=== PATIENT | male | born 1935 | race Caucasian/White ===

== ENCOUNTER → 2019-03-04 | Outpatient (CLI) | payer MEDICARE, OTHER ==
[~2019-03-04] MED LIST: ADVIL200 MG PO; ASPIRIN 81M81 MG/TA2 PO; BLOOD PRESSURE MED PO; BYSTOLIC5 MG PO; CHLORTHALIDONE25 MG PO; CLARITIN 1010 MG/TAB PO; KLOR-CON 1010 MEQ PO; NORCO 325 MG-51 TAB PO; PREVACID 30MG30 M1 PO; SYNTHROID0.112 MG/T PO; TYLENOL W/COD1 UDTAB PO; [UNRECOGNIZED DRUG - OTHER] PO
== END ==
LOC: COL.VAS 09:08
DX: H34.11 Central retinal artery occlusion, right eye (principal); I35.2 Nonrheumatic aortic (valve) stenosis with insufficiency

== ENCOUNTER 2019-05-19 12:05 | Emergency (ER) | payer MEDICARE, OTHER ==
[~2019-05-19] VITALS: Ht 177.8 cm; Wt 95.5 kg
[2019-05-19 12:06] VITALS: TEMP 99.9
[2019-05-19 12:54] LABS: COLLECTION METHOD CLEAN CATCH
[2019-05-19 12:57] LABS: GRAN # 1.4 (1.4-6.5); GRAN % 64.3 % (42.2-75.2); HEMATOCRIT 44.6 % (42.0-52.0); LYMPH # 0.6 (1.2-3.4); LYMPH % 26.2 % (20.0-51.0); MEAN CELL VOLUME 80 fl (80.0-100.0); MEAN CORPUSCULAR HEMOGLOBIN 25 pg (27.0-31.0); MEAN CORPUSCULAR HGB CONC 31 g/dl (33.0-37.0); MONO # 0.2 (0.1-0.6); PLATELET COUNT 118 K/mm3 (130-400); RED BLOOD COUNT 5.57 M/mm3 (4.20-5.60); REDCELL DISTRIBUTION WIDTH-CV 15.8 % (11.5-14.5)
[2019-05-19 13:02] LABS: MUCOUS Present /lpf; PH 6 (5-8); SQUAMOUS EPITHELIAL None Seen /hpf; URINE APPEARANCE Clear; URINE BACTERIA None Seen /hpf; URINE BILIRUBIN Negative (NEGATIVE); URINE BLOOD Negative (NEGATIVE); URINE COLOR Yellow; URINE GLUCOSE Negative (NEGATIVE); URINE KETONE Trace (NEGATIVE); URINE LEUKOCYTE ESTERASE Negative (NEGATIVE); URINE NITRATE Negative (NEGATIVE); URINE PROTEIN(semi-quant) 1+ (NEGATIVE); URINE RBC 0-2 /hpf; URINE UROBILINOGEN Negative (NEGATIVE)
[2019-05-19 13:11] LABS: ALBUMIN 4.5 gm/dL (3.5-5.0); BILIRUBIN,TOTAL 0.5 mg/dL (0.0-1.0); CREATININE, serum 0.76 (0.66-1.25); POTASSIUM 3.3 mmol/L (3.4-5.0); TOTAL PROTEIN 7.8 gm/dL (6.4-8.2)
[2019-05-19] MEDS ORDERED: PRILOSEC 20MG20 MG PO (13:27)
[2019-05-19] MEDS ORDERED: SYNTHROID0.1 MG/TAB PO (13:28)
[2019-05-19] MEDS ORDERED: HYZAAR 50-12.1 UDTAB PO (13:28)
[2019-05-19] MEDS ORDERED: ADVIL200 MG PO (13:29)
[2019-05-19] MEDS ORDERED: ASPIRIN 81M81 MG/TA2 PO (13:30)
[2019-05-19] MEDS ORDERED: K-TAB20 PO (13:30)
[2019-05-19] MEDS ORDERED: PLAVIX 75MG TAB75 MG PO (13:30)
[2019-05-19] MEDS ORDERED: TOPROL XL 25MG25 MG PO (13:32)
[2019-05-19] MEDS ORDERED: LIPITOR 40MG TA40 MG PO (13:32)
[2019-05-19 15:11] VITALS: BP 149/69; PULSE 70
== END 2019-05-19 15:11 | disposition home or self-care (01) ==
LOC: COL.ER 12:05
PROVIDERS: Family Medicine
DX: B34.9 Viral infection, unspecified (principal); Z79.82 Long term (current) use of aspirin
CPT/HCPCS: J2405; J7030; J7040

== ENCOUNTER 2024-01-28 11:12 | Emergency (ER) | payer MEDICARE, OTHER ==
[~2024-01-28] VITALS: Ht 177.8 cm; Wt 88.6 kg
[~2024-01-28 11:12] MED LIST changes: +HYZAAR 50-12.1 UDTAB PO; +K-TAB20 PO; +LIPITOR 40MG TA40 MG PO; +PLAVIX 75MG TAB75 MG PO; +PRILOSEC 20MG20 MG PO; +SYNTHROID0.1 MG/TAB PO; +TOPROL XL 25MG25 MG PO
[2024-01-28 11:16] VITALS: TEMP 97.6
[2024-01-28 11:41] LABS: EOS # 0.2 K/mm3 (0.0-0.7); EOS % 3.7 % (0.0-4.0); GRAN # 2.3 K/mm3 (1.4-6.5); GRAN % 51.7 % (42.2-75.2); HEMATOCRIT 40.4 % (42.0-52.0); HEMOGLOBIN 12.6 g/dl (13.5-18.0); LYMPH # 1.5 K/mm3 (1.2-3.4); LYMPH % 34.3 % (20.0-51.0); MEAN CELL VOLUME 82 fl (80.0-100.0); MEAN CORPUSCULAR HEMOGLOBIN 26 pg (27-31); MEAN CORPUSCULAR HGB CONC 31 g/dl (33.0-37.0); MEAN PLATELET VOLUME 9.3 fl (7.4-10.4); MONO # 0.4 K/mm3 (0.1-0.6); MONO % 9.8 % (1.7-9.3); PLATELET COUNT 166 K/mm3 (130-400); RED BLOOD COUNT 4.92 M/mm3 (4.20-5.60); REDCELL DISTRIBUTION WIDTH-CV 15.6 % (11.5-14.5)
[2024-01-28 11:46] LABS: INR 1.1 (0.8-3.0); PROTHROMBIN TIME 11.5 SECONDS (9.7-12.8)
[2024-01-28 11:49] LABS: PARTIAL THROMBOPLASTIN TIME 32.4 SECONDS (26.0-37.0)
[2024-01-28 12:06] LABS: ALANINE AMINOTRANSFERASE 14 U/L (0-55); ALBUMIN 3.9 g/dL (3.4-4.8); ALKALINE PHOSPHATASE 77 U/L (40-150); ANION GAP 12 mmol/L (7-16); AST,SGOT 17 U/L (5-34); BILIRUBIN,TOTAL 0.4 mg/dL (0.2-1.2); BLOOD UREA NITROGEN 21 mg/dL (8-26); CALCIUM 9.7 mg/dL (8.4-10.2); CHLORIDE 104 mEq/L (98-107); CREATININE, serum 0.86 mg/dL (0.72-1.25); GLUCOSE 110 mg/dL (70-99); MAGNESIUM 1.5 mg/dL (1.6-2.6); POTASSIUM 3.7 mEq/L (3.5-4.5); SODIUM 140 mEq/L (136-145)
[2024-01-28 12:16] LABS: TROPONIN-I < 0.010 ng/mL (0.00-0.033)
[2024-01-28 14:00] VITALS: O2SAT 97
[2024-01-28 14:23] VITALS: BP 155/71; PULSE 55
== END 2024-01-28 14:23 | disposition home or self-care (01) ==
LOC: COL.ER 11:12
PROVIDERS: Family Medicine
DX: R07.2 Precordial pain (principal); Z87.891 Personal history of nicotine dependence